=== PATIENT | female | born 1990 | race Native Hawaiian/Other Pacific Islander ===

== ENCOUNTER 2020-09-30 15:00 | Emergency (ER) | payer OTHER ==
[~2020-09-30] VITALS: Ht 160 cm; Wt 59.0 kg
[2020-09-30 15:32] LABS: PLATELET COUNT 269 K/uL (152-353)
[2020-09-30 15:33] LABS: POTASSIUM 4.3 mmol/L (3.6-5.2)
[2020-09-30 16:26] VITALS: BP 102/69; TEMP 97.4
== END 2020-09-30 16:30 | disposition home or self-care (01) ==
LOC: ED 15:00
PROVIDERS: Emergency Medicine Emergency Medical Services
DX: R56.9 Unspecified convulsions (principal); S16.1XXA Strain of muscle, fascia and tendon at neck level, initial encounter
CPT/HCPCS: 80053; 80307; 81000; 85027; 87077; 87086; 87088; 87186; 96360; 96375; 99284; J2060